=== PATIENT | male | born 1940 | race Caucasian/White ===

== ENCOUNTER → 2024-09-15 11:14 | Outpatient (REF) | payer MEDICARE, OTHER, SELFPAY | LOC: RCS 11:14 | PROVIDERS: ATTENDING PHYSICIAN Family Medicine | DX: R01.1 Cardiac murmur, unspecified (principal) | CPT/HCPCS: 93306 ==

== ENCOUNTER → 2025-01-01 17:02 | Outpatient (REF) | payer MEDICARE, OTHER, SELFPAY | LOC: RAD 17:02 | PROVIDERS: ATTENDING PHYSICIAN Family Medicine | DX: R10.9 Unspecified abdominal pain (principal) | CPT/HCPCS: 74022 ==

== ENCOUNTER 2025-01-30 21:38 | Emergency (ER) | payer MEDICARE, OTHER, SELFPAY ==
[2025-01-30 21:41] VITALS: BP 136/59
[2025-01-30 21:59] LABS: Hematocrit 36.4 % (39.0-52.0); Hemoglobin 12.6 g/dL (13.0-18.0); Mean Corp Hgb Conc. 34.6 g/dL (33.0-37.0); Mean Corpuscular Volume 93.8 fL (80.0-94.0); Nucleated Red Blood Cells % 0 % (-); Platelet Count 110 10^3/uL (130-400); Red Cell Dist. Width 13.2 % (11.5-14.5)
[2025-01-30 22:19] LABS: ALT (SGPT) 19 U/L (0-50); AST (SGOT) 34 U/L (17-59); Albumin 4.8 g/dl (3.5-5.0); Alkaline Phosphatase 80 U/L (38-126); Blood Urea Nitrogen 31 mg/dl (9-20); Calcium 9.3 mg/dl (8.4-10.2); Carbon Dioxide 25 mmol/L (22-30); Chloride 108 mmol/L (98-107); Glucose 80 mg/dl (70-99); Potassium 4.4 mmol/L (3.5-5.1); Sodium 140 mmol/L (135-145); Total Protein 7.2 g/dl (6.3-8.2); eGFR > 60.00
[2025-01-31] VITALS: BP 132/70
--- NOTE | 2025-01-31 01:12 | ED.GENMED ---
History of Present Illness
General
Chief Complaint: Abdominal Pain
Source: patient, spouse and previous hospital records
Exam Limitations: none
Time Seen by Provider: 01/31/25 00:32
Nursing documentation reviewed up to this point in time: agreed with
History of Present Illness
History of Present Illness:
This is an 84-year-old gentleman with past medical history of ulcerative colitis status post total colectomy at the age of 22 with chronic ileostomy. He also has history of gout, CAD status post CABG, hypertension, hyperlipidemia, previous
hospitalization 2020 and again 2021 for acute on chronic prostatitis/UTI.
He presents tonight with complaints of right groin discomfort and a bulge that he noticed in his right groin area this evening while taking a shower.
He has noticed very mild right groin/right anterior thigh discomfort over the past week or 2 but no back pain nor flank pain. The bulging sensation of his right groin was noticed today and definitely noticeable this evening while taking a shower.
He denies insightful pain when he presses his groin. He has had intermittent ache to his right testicle but no swelling of his testicle nor pain.
No history of similar episodes in the past.
He denies dysuria and urgency and or hematuria. He has not had a fever nor chills.
Over the past several weeks however he has had some intermittent abdominal discomfort, bloating and symptoms worsened with initiation of a high-fiber diet as recommended by his PCP. He has since discontinued the high-fiber diet within the past
week, stools from his ileostomy output have returned to normal, are less pasty but he continues with mild intermittent abdominal bloating and gassiness. He has had no nausea nor vomiting.
He has had intermittent epigastric discomfort most noted with meals, resolves with Pepto-Bismol. No chest pain or coughing or shortness of breath. Weight has been stable.
He admits that he has neglected follow-up with GI for quite some time and was referred to GI most recently by his PCP.
Past History
Past History
ED Past Medical History: CAD, HTN, Hypercholesterolemia, Other (Ulcerative colitis status post total colectomy in his 20s; gout) and Other (Mild chronic thrombocytopenia, prior history of ITP)
ED Past Surgical History: Bowel resection (Colectomy for ulcerative colitis in his 20s with ileostomy formation), Cardiac (Coronary artery bypass 2015), Cholecystectomy and Tonsilectomy
Social History
Tobacco: Non-smoker
Alcohol: Occasional
Drug: None
Personal:
Living: with family
Employment: Retired
Family History
Family History: Other (Noncontributory)
Phy Exam
Physical Exam
Physical Exam:
GENERAL: 84-year-old gentleman appears his stated age, bright and alert, pleasant, appears in no acute distress. is accompanying.
EYE: anicteric
NECK: Supple, nontender, no meningismus, no significant adenopathy.
ENT: oral mucosa is moist. No rhinorrhea.
CARDIAC: Regular rate and rhythm. no murmur.
LUNGS: Clear breath sounds bilaterally, no acute respiratory distress, no wheezes/rales/rhonchi
ABDOMEN: Soft, nondistended, without focal tenderness, ileostomy right lower quadrant with liquid to soft stool within the bag. No r/g, no cvat. normoactive BS. There is an easily reducible, small, right inguinal hernia. No palpable tenderness.
: Testes are symmetric bilaterally, nontender. No palpable masses. No scrotal edema nor hydrocele.
NEUROLOGICAL: Alert and oriented x3, no focal neuro deficits. Gait is tafoya and steady.
SKIN: Warm and dry, normal color, skin intact. No rash.
MUSCULOSKELETAL: No C/C/E. peripheral pulses are full and equal b/l. No palpable tenderness.
PSYCH: Normal and appropriate interaction.
Course
Orders/Labs/Results
Orders:
Orders
01/30/25 21:52
CMP [Comprehensive Metabolic Panel] Urgent
Complete Blood Count/With Diff Urgent
01/31/25 01:10
Pantoprazole [Protonix] 40 mg PO NOW STA
Abnormal Lab Results
01/30/25
21:52
RBC 3.88 L 10^6/uL
(4.70-6.10)
Hgb 12.6 L g/dL
(13.0-18.0)
Hct 36.4 L %
(39.0-52.0)
MCH 32.5 H pg
(27.0-31.0)
Plt Count 110 L 10^3/uL
(130-400)
MPV 12.3 H fL
(7.4-10.4)
Absolute Neuts (auto) 6.6 H 10^3/uL
(1.4-6.5)
Lymphocytes % 17.9 L %
(20.5-51.1)
Chloride 108 H mmol/L
(98-107)
BUN 31 H mg/dl
(9-20)
01/30/25 21:52
01/30/25 21:52
Vital Signs
Initial and Last Documented VS:
Initial Vital Signs
Temp Pulse Resp BP Pulse Ox
98.9 F 65 18 136/59 98
01/30/25 21:41 01/30/25 21:41 01/30/25 21:41 01/30/25 21:41 01/30/25 21:41
Last Documented Vital Signs
Temp Pulse Resp BP Pulse Ox
98.9 F 65 18 136/59 98
01/30/25 21:41 01/30/25 21:41 01/30/25 22:00 01/30/25 21:41 01/30/25 21:41
MDM/Problems Addressed
Differential Diagnosis Includes:
Differential diagnosis includes, in no particular order and is not limited to:
Inguinal hernia
Abdominal wall hernia
Bowel obstruction
Inflammatory bowel disease exacerbation
Gastrointestinal tract tumor
Incisional hernia
Adhesions post colectomy
Gastroenteritis
MDM/Problems Addressed:
Acute:
Reducible right inguinal hernia
Gastrointestinal discomfort, ongoing over the past month or 2, associated with dietary changes
Gastritis�subacute, worse with meals, resolved with Pepto-Bismol
Overall comfortable.
Exam remarkable for easily reducible small right inguinal hernia that is overall nontender. There is no tenderness along the inguinal ligament. No back tenderness. No hip tenderness.
exam is unremarkable.
Labs are reassuring, stable.
With reassuring exam, abdomen is soft without appreciable tenderness. Ileostomy has been functioning normally. At this point no indication for imaging/CT.
Discussed importance of avoiding heavy lifting. No bearing down activities.
Will refer to general surgery for follow-up regarding right inguinal hernia.
Will also refer to GI.
Will start a course of Protonix for what I suspect is acute gastritis.
Return precautions discussed.
Chronic conditions affecting care:
History of ulcerative colitis with total colectomy in his 20s. Chronic ileostomy.
History of prostatitis with previous UTIs.
Chronic conditions affecting care: HTN and CAD
*Pulse Oximetry
SaO2: 98
Oxygen Mode of Delivery: Room air
Patient hypoxic: no
*Critical Care Note
Total Time (30-74mins, 75-104mins- exclusive of procedures): Not Applicable
ED Attending Note
-
Portions of this chart may have been created with voice recognition software.� Occasional wrong word or��sound alike� substitutions may have occurred due to the inherent limitations of voice recognition software.
Discharge Plan
Departure
Patient Disposition: Home (Routine Discharge)
Date of Disposition: 01/31/25
Time of Disposition: 01:12
Patient with high blood pressure during this ER visit?: No
Condition: Good
Discharge Problem:
Reducible right inguinal hernia, Acute gastritis
Instructions: Groin hernias, Gastritis, [place] diet
Prescriptions:
New
pantoprazole [Protonix] 40 mg tablet,delayed release (DR/EC)
40 mg PO DAILY Qty: 30 1RF
No Action
atorvastatin 40 MG tablet
20 mg PO QPM
allopurinol 100 MG tablet
100 mg PO HS
citalopram 20 MG tablet
20 mg PO HS
metoprolol succinate 100 MG tablet extended release 24 hr
40 mg PO DAILY
coenzyme Q10 [Co Q-10] 150 MG capsule
300 mg PO BID
selenium 25 MCG tablet
25 mcg PO DAILY
vitamin B complex 1 TAB tablet
1 tab PO DAILY
allopurinol 300 MG tablet
300 mg PO DAILY
cholecalciferol (vitamin D3) 2,000 UNITS tablet
2,000 units PO BID
multivitamin with folic acid [Tab-A-Rao] 1 TABLET tablet
1 tab PO DAILY
magnesium oxide 400 MG tablet
400 mg PO DAILY
sulfamethoxazole-trimethoprim 1 TABLET tablet
1 tab PO BID Qty: 20 0RF
tamsulosin 0.4 MG capsule
0.8 mg PO DAILY Qty: 60 0RF
amlodipine 10 MG tablet
10 mg PO DAILY Qty: 10 0RF
amoxicillin-pot clavulanate 1 TABLET tablet
1 tab PO Q12 Qty: 42 0RF
oxycodone 5 mg tablet
5 mg PO Q8H PRN (Reason: Pain) Qty: 10 0RF
docusate sodium [Colace] 100 mg capsule
100 mg PO BID Qty: 10 0RF
Referrals:
Bhaskar Chance DO [Family Provider, Family Practice]
Andrei Holbrook MD [Active, Surgical] - Call in 1-3 days for appt
Cyndie Oakes DO [Active, Gastroenterology] - Call in 1-3 days for appt
Interventions
Interventions:
*Risk Screen - Suicide Last Done: 01/30/25 21:41
*General Assessment Last Done: 01/30/25 21:41
*ED- Fall Risk Assessment Last Done: 01/30/25 21:41
*ED COVID-19 Vaccine History Last Done: 01/30/25 21:41
*ED Influenza Vaccine History Last Done: 01/30/25 21:41
KC-Dxosob-Uuabqptbsu Assessment Last Done: 01/31/25 01:02
Discharge Date and Time
Print Language: FRISIAN
[2025-01-31] MEDS: PROTONIX 40 MG PO (01:32)
== END 2025-01-31 01:36 | disposition home or self-care (01) ==
LOC: EMR 21:38
PROVIDERS: Emergency Medicine; EMERGENCY PHYSICIAN Emergency Medicine; FAMILY PHYSICIAN Family Medicine
DX: K29.00 Acute gastritis without bleeding (principal); K40.90 Unilateral inguinal hernia, without obstruction or gangrene, not specified as recurrent; E78.00 Pure hypercholesterolemia, unspecified; I10 Essential (primary) hypertension; I25.10 Atherosclerotic heart disease of native coronary artery without angina pectoris; Z95.1 Presence of aortocoronary bypass graft; Z90.49 Acquired absence of other specified parts of digestive tract; Z86.2 Personal history of diseases of the blood and blood-forming organs and certain disorders involving the immune mechanism; Z93.2 Ileostomy status
CPT/HCPCS: 99283; 80053; 85025

== ENCOUNTER 2025-02-14 06:29 | Day surgery (SDC) | payer MEDICARE, OTHER, SELFPAY | END 2025-02-14 09:29 | disposition home or self-care (01) | LOC: GI 06:29 | PROVIDERS: ATTENDING PHYSICIAN Internal Medicine Gastroenterology | DX: R10.10 Upper abdominal pain, unspecified (principal); K29.70 Gastritis, unspecified, without bleeding | CPT/HCPCS: 43239; 88305; 88342 ==

== ENCOUNTER → 2025-03-11 15:25 | Outpatient (REF) | payer MEDICARE, OTHER, SELFPAY | LOC: RAD 15:25 | PROVIDERS: ATTENDING PHYSICIAN Surgery; FAMILY PHYSICIAN Family Medicine | DX: K40.90 Unilateral inguinal hernia, without obstruction or gangrene, not specified as recurrent (principal); R14.0 Abdominal distension (gaseous); R10.10 Upper abdominal pain, unspecified; Z93.2 Ileostomy status | CPT/HCPCS: 74177; Q9967 ==

== ENCOUNTER 2025-03-29 06:23 | Day surgery (SDC) | payer MEDICARE, OTHER, SELFPAY ==
[2025-03-29] VITALS (8 sets, daily range): BP systolic 104–125; BP diastolic 57–66; BMI 24.2
[2025-03-29] MEDS: TYLENOL 1000 MG PO (09:00)
[2025-03-29] MEDS: NORMOSOL-R/PLASMALYTE-A 1000 IV (09:01)
--- NOTE | 2025-03-29 09:01 | HP.FOC2 ---
Focused History & Physical
Chief Complaint
HPI:
Chief Complaint: Right inguinal hernia
HPI / Indication for Planned Procedure: Mr. Pugh is an 84-year-old male presenting for scheduled operative correction of his symptomatic right inguinal hernia.
Patient was recently seen in outpatient surgical evaluation secondary to a history of visible and palpable swelling in the right inguinal region. Physical examination confirmed the presence of a reducible right inguinal hernia.
His past abdominal surgical history is notable for laparotomy having undergone a total abdominal colectomy with permanent end ileostomy as well as cholecystectomy. In the setting we have elected to proceed with a open right inguinal herniorrhaphy.
Relevant Past Medical History: Other (Mild to moderate , CAD with history of CABG, hypercholesterolemia, hypertension, gout, history of ulcerative colitis)
Relevant Social History: Negative
Relevant Family History: Negative
Relevant Past Surgical History: Positive for (CABG, total abdominal colectomy with permanent end ileostomy, cholecystectomy)
Review of Systems
Review of Pertinent Systems: All Systems Negative
Medication
See Medication form for detailed medications: Yes
Medication List (including Herbals & OTC):
allopurinol 300 mg tablet 300 mg PO HS Gout 06/19/21
metoprolol succinate 100 mg tablet,extended release 24 hr 50 - 100 mg PO DAILY based on BP reading 06/19/21
Beta Sitosterol 1 tab PO DAILY 03/26/25
Fish Oil-Dha-Dpa 1 cap PO HS 03/26/25
Fish Oil-Dpa-Dha 2 tab PO DAILY 03/26/25
L[place] Grape Seed Extract 1 cap PO DAILY 03/26/25
Joint Support 1 cap PO HS 03/26/25
Joint Support 2 cap PO DAILY 03/26/25
L-Arginine(alpha-ketoglutarat) 1,000 mg PO DAILY 03/26/25
Magnesium Glycinate With Zinc 1 tab PO HS 03/26/25
Magnesium Glycinate With Zinc 2 tab PO DAILY 03/26/25
Mk7 2 cap PO DAILY 03/26/25
Pre/Pro/Postbiotic 1 tab PO DAILY 03/26/25
Prostate Support 1 cap PO DAILY 03/26/25
Prostate Support 2 cap PO HS 03/26/25
Quercetin With Bromelain 1 cap PO DAILY 03/26/25
T Lite Zinc 1 tab PO HS 03/26/25
ascorbate calcium (vitamin C) 500 mg tablet 500 mg PO DAILY 03/26/25
ashwagandha extract 500 mg capsule 500 mg PO BID 03/26/25
aspirin 81 mg capsule 81 mg PO HS 03/26/25
biotin 10,000 mcg capsule 10,000 mcg PO DAILY 03/26/25
cholecalciferol (vitamin D3) 50 mcg (2,000 unit) capsule (Vitamin D3) 50 mcg PO DAILY 03/26/25
coQ10 (ubiquinol) 200 mg capsule 300 mg PO BID 03/26/25
losartan 50 mg tablet 50 mg PO BID 03/26/25
niacin 100 mg tablet 100 mg PO BID 03/26/25
rosuvastatin 10 mg tablet 10 mg PO HS 03/26/25
selenium 200 mcg tablet 200 mcg PO HS 03/26/25
tamsulosin 0.4 mg capsule 0.4 mg PO DAILY 03/26/25
turmeric root extract 750 mg capsule 750 mg PO BID 03/26/25
Medications Reviewed: Yes
Allergies and Reactions
Patient has Allergies: Yes
Noted Allergies and Reactions:
Allergy/AdvReac Type Severity Reaction Status Date / Time
bee venom protein (honey bee) Allergy facial Verified 03/29/25 08:42
swelling,
throat
swelling
chocolate Allergy itching Verified 03/29/25 08:42
with large
amounts
codeine Allergy dizzy Verified 03/29/25 08:42
Pertinent Physical Exam
All Other Systems: Negative
Head/Neck: Normal
Lungs: Normal
Heart: Normal
Abdomen: Normal (Right sided ileostomy) and Other (Reducible right inguinal hernia)
Extremities: Normal
Neurological: Normal
Diagnosis / Assessment
84-year-old male presenting for correction of his symptomatic right inguinal hernia
Plan / Procedure
Open right inguinal herniorrhaphy with mesh
Anesthesia/Sedation to be done by Anesthesia Provider: Yes
--- NOTE | 2025-03-29 09:04 | W.SUR.PREOP ---
Pre-Operative Surgical Note
-
I have examined this patient prior to the performance of the scheduled procedure.
The patient's condition is unchanged from the time of the current History and
Physical and the patient is able to undergo the scheduled procedure.
--- NOTE | 2025-03-29 10:51 | W.IMMPOSTOP ---
Addendum entered and electronically signed by Andrei Holbrook MD 03/29/25 11:36:
#[id number]
Original Note:
Surgical Immed Post Op Note
-
Primary Surgeon: Andrei Holbrook MD
Assisting Surgeon: Lucía Kat NP
Pre-op Diagnosis: Right inguinal hernia
Post-op Diagnosis: Right inguinal hernia, indirect
Procedure Performed: Open Deepthi tension-free mesh repair right inguinal hernia; soft mesh 15 cm x 7.5 cm
Anesthesia Type: MAC +1% lidocaine with epi/0.25% Marcaine with epi
Specimen / Cultures: None
Estimated Blood Loss: 6 mL
Complications: None immediate
Operative Findings: Right indirect inguinal hernia and lipoma of spermatic cord. Laxity in the direct space but no hernia sac. Onlay tension-free mesh repair; Bard soft mesh 7.5 cm x 15 cm secured with 2-0 Maxon.
The assistance of Lucía Kat NP was required due to the complexity of the procedure. During the procedure Lucía Kat NP assisted with retraction for exposure, and closure of the incision site.
== END 2025-03-29 12:33 | disposition home or self-care (01) ==
LOC: SDS 06:23
PROVIDERS: ATTENDING PHYSICIAN Surgery
DX: K40.90 Unilateral inguinal hernia, without obstruction or gangrene, not specified as recurrent (principal)
CPT/HCPCS: 49505